=== PATIENT | male | born 1970 | race Caucasian/White ===

== ENCOUNTER → 2024-11-13 | Outpatient (BNVA) | payer BC, MEDICAID, SELFPAY | END | disposition home or self-care (01) | PROVIDERS: Visit Provider Urology | DX: N40.1 Benign prostatic hyperplasia with lower urinary tract symptoms (principal); N13.8 Other obstructive and reflux uropathy; Z53.8 Procedure and treatment not carried out for other reasons | CPT/HCPCS: 76872; 81003; 96372; J1580; J3490; A9270 ==

== ENCOUNTER → 2025-02-01 | Outpatient (BNVA) | payer BC, MEDICAID, SELFPAY | END | disposition home or self-care (01) | PROVIDERS: PCP Nurse Practitioner Family; Referring Provider Nurse Practitioner Family; Visit Provider Urology | DX: N40.1 Benign prostatic hyperplasia with lower urinary tract symptoms (principal); R39.12 Poor urinary stream | CPT/HCPCS: 51741; 51798 ==

== ENCOUNTER → 2025-07-23 | Outpatient (BNVA) | payer BC, MEDICAID, SELFPAY | END | disposition home or self-care (01) | PROVIDERS: PCP Nurse Practitioner Family; Referring Provider Nurse Practitioner Family; Visit Provider Urology | DX: N40.1 Benign prostatic hyperplasia with lower urinary tract symptoms (principal); N13.8 Other obstructive and reflux uropathy; N52.9 Male erectile dysfunction, unspecified; E11.9 Type 2 diabetes mellitus without complications; I10 Essential (primary) hypertension | CPT/HCPCS: 81003; 99212; G0463 ==

== ENCOUNTER → 2025-07-23 | Outpatient (CLI) | payer BC, MEDICAID, SELFPAY ==
[2025-07-26 22:03] LABS: PSA, Free 0.41 ng/mL; PSA, Total 5.1 ng/mL (< OR = 4.0)
[2025-07-27 06:20] LABS: PSA, % Free 8 % (calc) (>25)
== END | disposition home or self-care (01) ==
LOC: COPL 16:40
PROVIDERS: PCP Physician Assistant; Referring Provider Urology; Visit Provider Urology
DX: Z01.89 Encounter for other specified special examinations (principal)
CPT/HCPCS: 36415; 84153; 84154